=== PATIENT | male | born 1960 | race Caucasian/White ===

== ENCOUNTER 2022-10-10 00:43 | Day surgery (SDC) | payer BC, SELFPAY ==
[2022-09-28 12:16] VITALS: BMI 25.9
--- NOTE | 2022-10-10 06:58 | WPDANESEPPF ---
Anes - Initial Pre Proc Eval Procedure: Operation Date: 10/10/22 08:00 Proposed Procedures p Screening Colonoscopy - Jonnie Munoz MD Date/Time: 10/10/22 06:58 Surgeon: Jonnie Munoz MD Pre Op Diagnosis: neoplasm screening Patient Data Age: 62 Gender: M Height: 1.78 m Weight: 82 kg Allergies Allergy/AdvReac Type Severity Reaction Status Date / Time No Known Allergies Allergy Mild Verified 10/10/22 07:05 Home Medications Medication Instructions Recorded Confirmed Type sodium,potassium,mag sulfates 17.5 See Rx Instructions PO .COMPLEX 09/06/22 10/10/22 Rx gram-3.13 gram-1.6 gram oral soln #354 mL (Suprep Bowel Prep Kit) Gluco-Gel 4 tab-cap PO DAILY 09/28/22 10/10/22 History Liver Protect 1 tab-cap PO DAILY 09/28/22 10/10/22 History Multi-Vitamin 2 tab-cap PO DAILY 09/28/22 10/10/22 History Probiotic 2 tab-cap PO DAILY 09/28/22 10/10/22 History Vitamin C 7,000 mg PO DAILY 09/28/22 10/10/22 History acetylcysteine 600 mg capsule (NAC) 600 mg PO DAILY 09/28/22 10/10/22 History cholecalciferol (vitamin D3) 125 250 mcg PO DAILY 09/28/22 10/10/22 History mcg (5,000 unit) tablet (Vitamin D3) garlic 1,800 mg PO DAILY 09/28/22 10/10/22 History green tea extract 375 mg capsule 750 mg PO DAILY 09/28/22 10/10/22 History lecithin 1,200 mg capsule 1,200 mg PO DAILY 09/28/22 10/10/22 History magnesium 500 mg tablet 500 mg PO DAILY 09/28/22 10/10/22 History magnesium glycinate 175 mg PO HS 09/28/22 10/10/22 History omega-3 fatty acids 2,000 mg PO DAILY 09/28/22 10/10/22 History passion flower 1,400 mg PO HS 09/28/22 10/10/22 History quercetin 500 mg capsule 500 mg PO DAILY 09/28/22 10/10/22 History selenium 200 mcg capsule 300 mcg PO DAILY 09/28/22 10/10/22 History turmeric 1,000 mg PO DAILY 09/28/22 10/10/22 History zinc 50 mg capsule 50 mg PO DAILY 09/28/22 10/10/22 History Patient hx anesthesia problems: none Family hx anesthesia problems: none Results Review: All pre-operative results and documents have been reviewed as part of the pre-operative evaluation. [facility] Family History Family History (Updated 08/30/17 @ 07:09 by DOCTOR UNKNOWN) Father Malignant neoplasm of prostate Family history of throat cancer Grandparent Malignant neoplasm of prostate Mother Family history of malignant neoplasm of brain Social History Social History Smoking status: Never smoker Smokeless tobacco user: chewing tobacco Alcohol intake: former Substance use type: does not use Living arrangements: with family Spiritual care concerns: No Anes - Eval Final PreProcedure Day of Procedure 10/10/22 06:58 Patient weight: overweight Heart: regular rate and rhythm Lungs: clear to auscultation Airway: Mallampati scale class II Neurological: alert and oriented Last oral intake: >/= 8 hours ASA classification: I Emergent: no Anesthetic plan: proceed Anesthesia type and monitoring: general GIVS and standard monitoring Results Review: All pre-operative results and documents have been reviewed as part of the pre-operative evaluation. Informed Consent: The patient's anesthetic plan and its attendant risks and benefits were discussed with the patient/family/POA. Questions were solicited and answers provided to the satisfaction of the patient/family/POA.
[2022-10-10 07:07] VITALS: BP 112/77; PULSE 69; RESP 16; TEMP 36.2; O2SAT 100
[2022-10-10] MEDS: LACTATED RINGERS 1,000 ML 150 ML IV CONT (07:14)
--- NOTE | 2022-10-10 07:59 | PM.HPGS ---
History of Present Illness History of Present Illness Consent: Risks, benefits, and alternatives have been discussed and questions answered. Patient agrees to proceed with procedure. Chief complaint: neoplasm screening Narrative: Tommy Woo is a 62 year old male Presents for screening colonoscopy. Patient's current weight appetite and bowel movements are normal. Patient denies abdominal pain. He has had no bleeding. Family history is noncontributory. Patient presents today for neoplasia screening colonoscopy. Previous colonoscopy 2012 revealed a benign hyperplastic colon polyp. Not felt to have a cancer risk. Review of Systems Review of Systems: Review of systems noncontributory. [facility] Family History Family History (Updated 08/30/17 @ 07:09 by DOCTOR UNKNOWN) Father Malignant neoplasm of prostate Family history of throat cancer Grandparent Malignant neoplasm of prostate Mother Family history of malignant neoplasm of brain Social History Social History Smoking status: Never smoker Smokeless tobacco user: chewing tobacco Alcohol intake: former Substance use type: does not use Living arrangements: with family Spiritual care concerns: No Meds Home Medications and Allergies Home Medications Medication Instructions Recorded Confirmed Type sodium,potassium,mag sulfates 17.5 See Rx Instructions PO .COMPLEX 09/06/22 10/10/22 Rx gram-3.13 gram-1.6 gram oral soln #354 mL (Suprep Bowel Prep Kit) Gluco-Gel 4 tab-cap PO DAILY 09/28/22 10/10/22 History Liver Protect 1 tab-cap PO DAILY 09/28/22 10/10/22 History Multi-Vitamin 2 tab-cap PO DAILY 09/28/22 10/10/22 History Probiotic 2 tab-cap PO DAILY 09/28/22 10/10/22 History Vitamin C 7,000 mg PO DAILY 09/28/22 10/10/22 History acetylcysteine 600 mg capsule (NAC) 600 mg PO DAILY 09/28/22 10/10/22 History cholecalciferol (vitamin D3) 125 250 mcg PO DAILY 09/28/22 10/10/22 History mcg (5,000 unit) tablet (Vitamin D3) garlic 1,800 mg PO DAILY 09/28/22 10/10/22 History green tea extract 375 mg capsule 750 mg PO DAILY 09/28/22 10/10/22 History lecithin 1,200 mg capsule 1,200 mg PO DAILY 09/28/22 10/10/22 History magnesium 500 mg tablet 500 mg PO DAILY 09/28/22 10/10/22 History magnesium glycinate 175 mg PO HS 09/28/22 10/10/22 History omega-3 fatty acids 2,000 mg PO DAILY 09/28/22 10/10/22 History passion flower 1,400 mg PO HS 09/28/22 10/10/22 History quercetin 500 mg capsule 500 mg PO DAILY 09/28/22 10/10/22 History selenium 200 mcg capsule 300 mcg PO DAILY 09/28/22 10/10/22 History turmeric 1,000 mg PO DAILY 09/28/22 10/10/22 History zinc 50 mg capsule 50 mg PO DAILY 09/28/22 10/10/22 History Allergies Allergy/AdvReac Type Severity Reaction Status Date / Time No Known Allergies Allergy Mild Verified 10/10/22 07:05 Vital Signs Vital Signs - 24 hr 10/10/22 07:07 Temperature 97.2 F L Pulse Rate 69 Respiratory Rate 16 Blood Pressure 112/77 Pulse Oximetry 100 Oxygen Delivery Room Air Exam Narrative: Physical exam reveals patient to be alert. Vital signs stable. HEENT exam is unremarkable. Patient is anicteric. Lungs are clear to auscultation and percussion. Heart is without murmur or extra sounds. Abdomen bowel sounds are present soft nontender with no organomegaly. Digital external rectal exam is normal. Assessment and Plan Assessment and plan (1) Encounter for screening colonoscopy: Code(s): Z12.11 - Encounter for screening for malignant neoplasm of colon Status: Acute Assessment and Plan: Patient presents today for screening colonoscopy. He appears to be at average risk for colon polyps. Further recommendations may be given after endoscopy.
[2022-10-10] MEDS: SIMETHICONE ORAL SUSPENSION 20 MG/0.3 ML 30 ML BOTTLE 0.6 ML IRRIGATION (08:25)
[2022-10-10 08:33] VITALS: BP 96/60; PULSE 57; RESP 16; O2SAT 100
[2022-10-10 08:43] VITALS: BP 104/66; PULSE 52; RESP 16; O2SAT 100
[2022-10-10 08:53] VITALS: BP 106/70; PULSE 45; RESP 16; O2SAT 100
== END 2022-10-10 09:07 | disposition home or self-care (01) ==
PROVIDERS: PCP Student in an Organized Health Care Education/Training Program; Visit Provider Internal Medicine Gastroenterology
PROC: 0DJD8ZZ Inspection of Lower Intestinal Tract, Via Natural or Artificial Opening Endoscopic (ICD-10-PCS; CPT 45378; principal; 2022-10-10 08:00)
DX: Z12.11 Encounter for screening for malignant neoplasm of colon (principal); K63.89 Other specified diseases of intestine; K64.8 Other hemorrhoids; F17.220 Nicotine dependence, chewing tobacco, uncomplicated
CPT/HCPCS: 45378; J2704; J7120

== ENCOUNTER 2025-05-04 16:41 | Emergency (ER) | payer BC, SELFPAY ==
--- NOTE | ~2025-05-04 | US_ITS ---
US scrotum doppler INDICATION: Right testicular swelling TECHNIQUE: Testicular sonogram utilizing grayscale and color Doppler FINDINGS: The testes are normal in size and appearance. No focal lesions are seen. The right testes measures 4.6 x 2.5 x 3.8 cm centimeters, and the left testis measures 4.4 x 2 x 2.7 cm cm. There is n ormal vascular flow to both testes. There is a large right extratesticular cyst, likely epididymal, measuring 5.8 x 2.9 cm. Small right h ydrocele. No evidence for varicocele. IMPRESSION: 1. Large right extratesticular cyst measuring up to 5.8 cm, likely epididymal. Reviewed, dictated and finalized at location A.
--- NOTE | ~2025-05-04 | CT_ITS ---
EXAMINATION: CT abdomen pelvis w con DATE: 05/04/2025 20:09 INDICATION: Groin pain and swelling TECHNIQUE: Computed tomography (CT) of the head was performed without intravenous contrast. The dose- length product was 349.09 mGy-cm. Automated exposure control and iterative reconstruction technique w ere employed. COMPARISON: None FINDINGS: Lung bases unremarkable. Heart size normal. No significant pleural or pericardial effusion. There are liver cysts. The spleen, pancreas, adrenal glands and kidneys are unremarkable. No signifi cant vascular abnormality. No abnormal pelvic masses or fluid collections. Nonobstructive bowel patte rn. There is small right inguinal hernia containing fat infiltration and stranding. There is levoscol iosis of the lumbar spine. Mild lumbar spondylosis. There is mild osteoarthritis of the hips. There i s a right hydrocele. IMPRESSION: 1. Right inguinal hernia contains fat with presence of fatty infiltration and stranding indicating se condary changes within the fat. Differential diagnosis includes incarcerated hernia with strangulated fat, epiploic appendigits/omental infarction in hernia, and fat necrosis. Reviewed, dictated and finalized at location A. IMPRESSION: 1. Right inguinal hernia contains fat with presence of fatty infiltration and s tranding indicating secondary changes within the fat. Differential diagnosis in cludes incarcerated hernia with strangulated fat, epiploic appendigits/omental infarction in hernia, and fat necrosis.
--- OUTSIDE RECORDS SUMMARY | 2025-05-04 16:44 | XMS_ITS | Clinical Summary ---
Author Organization [facility] Address [facility] [place] [address] Care Team Providers Care Aerophysics Engineer Name Role Phone Jaime Borja DO Primary Care Provider + Allergies No known active allergies Medications Multiple Vitamins-[place] als (MULTIVITAMIN ADULT) Tab Active ketoconazole (NIZORAL) 2 % cream APPLY TO THE AFFECTED AREA TWICE DAILY NEEDED IN GROIN. MIX WITH HYDROCORTISONE CREAM 4 Active hydrocortisone 2.5 % cream APPLY TOPICALLY TO RASH IN GROIN TWICE DAILY NEEDED. MIX WITH KETOCONAZOLE. USE SPARINGLY AND LIMIT TO 2 WEEKS PER MONTH 4 Active Active Problems Problem Noted Date Diagnosed Date Excessive drinking of alcohol 07/13/2020 Chewing tobacco nicotine dependence without comp lication 07/13/2020 Encounters Date Type Department Care Team Description 05/04/2025 Telephone [facility] Family & Internal Medicine [address] [phone] Jaime Borja DO Referral from Last 3 Months Family History Medical History Relation Comments Cancer Father Tonsil & prostat e cancer, also my dads father and brother prostate cancer Prostate Cancer Father neck cancer Father Cancer Mother Brain cancer Prostate Cancer Paternal Grandfather Prostate Cancer Paternal Uncle Relation Status Comments Father Alive Mother Paternal Grandfather Paternal Uncle Alive Social History Tobacco Use Types Packs/Day Years Used Date Smoking Tobacco: Never Smokeless Tobacco: Current Chew Tobacco Cessation:Ready to Q uit: No; Counseling Given: Yes Comments:Skoal only daily use Alcohol Use Standard Drinks/Week Comments Yes 20 (1 standard drink = 0.6 oz pure alcohol) Havebeen able to reduce alchohol intake AUDIT-C Answer Date Recorded Q1: How often do you have a drink containing alcohol? 4 or more times a week 07/13/2020 Q2: How many drinks containi ng alcohol do you have on a typical day when you are drinking? 7 to 9 0 Q3: How often do you have si x or more drinks on one occasion? 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[employer] Not on file Not on file Not on file Last Filed Vital Signs Vital Sign Reading Time Taken Comments Blood Pressure 124/84 11/12/2024 8:52 AM INSTALLATION SUPERINTENDENT Pulse 79 11/12/2024 8:52 AM INSTALLATION SUPERINTENDENT Temperature 36.8 C (98.3 F) 11/12/2024 8:52 AM INSTALLATION SUPERINTENDENT Respiratory Rate 16 11/12/2024 8:52 AM INSTALLATION SUPERINTENDENT Oxygen Saturation 98% 11/12/2024 8:52 AM INSTALLATION SUPERINTENDENT Inhaled Oxygen Concentration - - Weight 82.6 kg (182 lb) 11/12/2024 8:52 AM INSTALLATION SUPERINTENDENT Height 177.8 cm (5' 10) 11/12/2024 8:52 AM INSTALLATION SUPERINTENDENT Body Mass Index 26.11 11/12/2024 8:52 AM INSTALLATION SUPERINTENDENT Plan of Treatment Upcoming Encounters Date Type Department Care Team (Late st Contact Info) Description 11/16/2025 8:40 AM INSTALLATION SUPERINTENDENT Office Visit [facility] Family & Internal Medicine [id number] [place] [address] Jaime Borja, [address] [place] [address] [id number] Health Maintenance Due Date Last Done Comments Pneumococcal Vaccine: 50+ Years (1 of - PCV) 2011 Annual Physical 11/12/2025 11/12/2024, 09/17, 07/26/2022, Additional history exists COVID-19 Vaccine (1 - season) 2025 Postponed from 05/18/2024 (Patient Refused) DTaP, Tdap and Td Vaccines (1 - Tdap) 11/12/2025 Postponed from 1980 (Patient Refused) Zoster Vaccines (1 of 2) 11/12/2025 Pos tponed from 2011 (Patient Refused) Colorectal Cancer Screening Colonoscopy (10 Years) 10/10/2032 10/10/2022 RSV Immunization or 60+ Years (1 - 1-dose 75+ series) 2036 Hepatitis C Completed 07/26/2022 PHQ-2 (Physician [place]) Completed 11/12/2024 Meningococcal B Vaccine Aged Out No l onger eligible based on patient's age to complete this topic Meningococcal Vaccine Aged Out No job tyra eligible based on patient's age to complete this topic RSV Immunizations Under 20 Months Aged Out No longer eligible based on patient's age to complete this topic Procedures Procedure Name Priority Date/Time Associated Diagnosis Comments COLONOSCOPY GENERIC (SCAN ORDER) 10/10/2022 HEPATITIS C ANTIBODY Routine 07/26/2022 8:22 AM INSTALLATION SUPERINTENDENT Encounter for preventative adult health care examination Need for hepatitis C screening test from Last 3 Months or Most Recently Relevant to Health Maintenance Results * COLONOSCOPY GENERIC (10/10/2022) 10/10/2022 [facility] Scanned SCANNING Final Resu lt * HEPATITIS C ANTIBODY (07/26/2022 8:22 AM INSTALLATION SUPERINTENDENT) HEPATITIS C AB NON-REACTI VE NON-REACT JOESPH 07/26/2022 6:45 PM INSTALLATION SUPERINTENDENT [facility] Comment: ANTIBODIES TO HCV NOT DETECTED. DOES NOT EXCLUDE THE POSSIBILITY OF EXPOSURE TO HCV. 07/26/2022 8:22 AM INSTALLATION SUPERINTENDENT us Jaime Borja DO LABORATORY Final Re sult [facility] [address] [place] [address], [id number] from Last 3 Months or Most Recently Relevant to Health Maintenance Insurance [facility] Care Teams Aerophysics Engineer Relationship Specialty Start Date End Date Jaime Borja DO [address] [place] [id number] PCP - General FAMILY PRACTICE 07/13/20
--- OUTSIDE RECORDS SUMMARY | 2025-05-04 16:44 | XMS_ITS | Encounter Summary ---
Author Organization [facility] Address [facility] [place] [address] Care Team Providers Care First Beater Name Role Phone Sofia Morales DO Primary Care Provider + Reason for Referral * Consultation/Treatment (Urgent) - New Request Specialty Diagnoses / Procedures Referred By Rica barnes Referred To Contact GENERAL SURGERY Diagnoses Inguinal hernia Procedures OFFICE/OUTPATIENT NEW LOW MDM 30-44 MINUTES OFFICE/OUTPT VISIT,NEW,LEVL IV OFFICE/OUTPT VISIT,NEW,LEVL V OFFICE/OUTPT VISIT,EST,LEVL III OFFICE/OUTPT VISIT,EST,LEVL IV OFFICE/OUTPT VISIT,EST,LEVL V Sofia Morales DO [address] [place] [address] Phone: tel: fax: Rose Chaney MD [address] [place] [id number] Phone: tel: fax: Referral ID Status Reason Start Date Expiration Date V isits Requested Visits Authorized [id number] New Request 05/04/2025 05/04/2026 1 1 Scheduling Instructions Pt has appt scheduled 05/06/25. Reason for Visit * Reason Onset Date Comments Referral 05/04/2025 Encounter Details Date Type Department Care Team (Late st Contact Info) Description 05/04/2025 Telephone [facility] Family & Internal Medicine [facility] [address] [place] [address] Sofia Morales DO [address] [place] [address] Referral Social History Tobacco Use Types Packs/Day Years Used Date Smoking Tobacco: Never Smokeless Tobacco: Current Chew Comments:Skoal only daily us e Alcohol Use Standard Drinks/Week Comments Yes 20 [...] Sex Assigned at Male 11/12/2024 8:52 AM BILLET HEATER OPERATOR Legal Sex Male 3:35 PM CDT Gender Identity Male 11/12/2024 8:52 AM BILLET HEATER OPERATOR Sexual Orientation Not on file 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 Called pt to inform, he stated the appointment couldn't be held, and it is no longer available. He said Dr. Chaney is currently physician on staff at [facility]. At time of call, pt is on his way to ER to be seen/eval by Dr. Chaney. * Sofia Morales DO - 05/04/2025 12:45 PM CDT That's fine. * Carito Kapoor - 05/04/2025 12:01 PM CDT Patient called Dr. Chaney and they would be able to get him in 05/06/25 as he is flying out of town for about 2x weeks starting on Sunday. * Carito Kapoor - 05/04/2025 11:58 AM CDT The patient called for a referral to the following physician: Is this a new consult: yes - has never been seen by provider Dr's name: Dr. Rose Chaney Specialty: General Surgery Reason for referral (diagnosis): Inguinal Hernia Appointment: n/a Last office visit at this office: Last visit with SOFIA MORALES in FAMILY PRACTICE was on: 11/12/2024 in [facility] Future appointment scheduled: Future Appointments Date Time Provider Department Center 11/16/2025 8:40 AM Sofia Morales DO [facility] documented in this encounter Plan of Treatment Upcoming Encounters Date Type Department Care Team (Late st Contact Info) Description 11/16/2025 8:40 AM BILLET HEATER OPERATOR Office Visit [facility] Family & Internal Medicine - [id number] [place] [address] Sofia Morales DO [facility] [place] [address] Scheduled Referrals Name Type Priority Associated Diagnoses Orde r Schedule Ambulatory referral to General Surgery (OTHER) Referral Routine Inguinal hernia Ordered: 05/04/2025 documented as of this encounter Visit Diagnoses Diagnosis Inguinal hernia- Primary Inguinal hernia with gangrene, unilateral or unspecified, (not specified as recurrent) documented in this encounter Additional Health Concerns Assessment Noted Time PHQ-9 Depression Total Score: 2 07/13/20 20 10:27 AM CDT documented as of this encounter Care Teams First Beater Relationship Specialty Start Date End Date Sofia Morales DO [address] [place] [id number] PCP - General FAMILY PRACTICE 07/13/20 documented as of this encounter
--- OUTSIDE RECORDS SUMMARY | 2025-05-04 16:44 | XMS_ITS | Clinical Summary ---
Author Organization [facility] Address [address] [place] [address] Care Team Providers Care Metal Products Fabricator Assembler Name Role Phone LukemineshJaime munoz Primary Care Provide r Allergies No known active allergies Medications meloxicam (MOBIC) 15 mg tablet Take 1 tablet (15 mg total) by mouth daily 30 tablet 01/21/2024 Active Active Problems Problem Noted Date Diagnosed Date Trigger ring finger of left hand 07/31/2024 Left hand pain 07/02/2024 Social History Tobacco Use Types Packs/Day Years Used Date Smoking Tobacco: Never Smokeless Tobacco: Current Tobacco Cessation:Ready to Q uit: Not Asked; Counseling Given: Not Answered Sex and Gender Information Value Date Recorded Sex Assigned at Not on file Legal Sex Male 1:40 PM CDT Gender Identity Not on file Sexual Orientation Not on file Obstetrics History Last Filed Vital Signs Vital Sign Reading Time Taken Comments Blood Pressure - - Pulse - - Temperature - - Respiratory Rate - - Oxygen Saturation - - Inhaled Oxygen Concentration - - Weight 76.7 kg (169 lb) 01/21/2024 12:52 PM CDT Height 177.8 cm (5' 10) 01/21/2024 12:52 PM CDT Body Mass Index 24.25 01/21/2024 12:52 PM CDT Plan of Treatment Health Maintenance Due Date Last Done Comments Colon Cancer Screening-Colonoscopy 1961 Depression Screening 1961 Hepatitis C Screening 1961 Prostate Cancer Screening-PSA 1961 DTaP/Tdap/Td Vaccine (1 - Tdap) 1972 Hepatitis B Screening 1979 Regular Well Visit/Exam 18-64 1979 Zoster Vaccine (1 of 2) 2011 Influenza Vaccine (#1) 2025 Pneumococcal vaccine <65 Aged Out No longer eligible based on patient's age to complete this topic Insurance ensembli OOS ensembli OOS Care Teams Metal Products Fabricator Assembler Relationship Specialty Start Date End Date Jaime Borja DO [address] [place] [id number] PCP - General Family Medicine 01/14/24
[2025-05-04 16:45] VITALS: BP 155/95; PULSE 75; RESP 18; TEMP 37.1; O2SAT 100
--- NOTE | 2025-05-04 16:46 | ED.ABDPAIN ---
HPI - Abdominal Pain General Chief Complaint: Abdominal Pain <Silvina Llamas PA-C - Last Filed: 05/05/25 10:10> Stated Complaint: inguinal hernia <Silvina Llamas PA-C - Last Filed: 05/05/25 10:10> Time Seen by Provider: 05/04/25 16:46 <Silvina Llamas PA-C - Last Filed: 05/05/25 10:10> Focused HPI: This is a 64 year old male that presents to the ER for abdominal pain. Reports morning he blew his nose and felt sharp pain in the lower abdomen. Concerned he may have an inguinal hernia. Denies fevers, vomiting. GENERAL: Well-appearing, well-nourished, and in no acute distress. HEAD: Normocephalic, atraumatic. CHEST: Clear to auscultation. ?No respiratory distress. HEART: Regular rate and rhythm.? NEURO: ?Alert and oriented x3. Patient screened in triage and initial orders placed.? ?Additional care and disposition to be based upon?diagnostic testing and treatment. <Silvina Llamas PA-C - Last Filed: 05/05/25 10:10> History of Present Illness HPI narrative: I agree with the above HPI <Nicola Shahid MD - Last Filed: 05/05/25 00:57> Related Data Home Medications: Home Medications ?Medication ?Instructions ?Recorded ?Confirmed ?Last Taken ?Type Gluco-Gel 4 tab-cap PO DAILY 09/28/22 10/10/22 10/05/22 History Liver Protect 1 tab-cap PO DAILY 09/28/22 10/10/22 10/05/22 History Multi-Vitamin 2 tab-cap PO DAILY 09/28/22 10/10/22 10/05/22 History Probiotic 2 tab-cap PO DAILY 09/28/22 10/10/22 10/05/22 History Vitamin C 7,000 mg PO DAILY 09/28/22 10/10/22 10/05/22 History acetylcysteine 600 mg capsule (NAC) 600 mg PO DAILY 09/28/22 10/10/22 10/05/22 History cholecalciferol (vitamin D3) 125 250 mcg PO DAILY 09/28/22 10/10/22 10/05/22 History mcg (5,000 unit) tablet (Vitamin D3) garlic 1,800 mg PO DAILY 09/28/22 10/10/22 10/05/22 History green tea extract 375 mg capsule 750 mg PO DAILY 09/28/22 10/10/22 10/05/22 History lecithin 1,200 mg capsule 1,200 mg PO DAILY 09/28/22 10/10/22 10/05/22 History magnesium 500 mg tablet 500 mg PO DAILY 09/28/22 10/10/22 10/05/22 History magnesium glycinate 175 mg PO HS 09/28/22 10/10/22 10/05/22 History omega-3 fatty acids 2,000 mg PO DAILY 09/28/22 10/10/22 10/05/22 History passion flower 1,400 mg PO HS 09/28/22 10/10/22 10/05/22 History quercetin 500 mg capsule 500 mg PO DAILY 09/28/22 10/10/22 10/05/22 History selenium 200 mcg capsule 300 mcg PO DAILY 09/28/22 10/10/22 10/05/22 History turmeric 1,000 mg PO DAILY 09/28/22 10/10/22 10/05/22 History zinc 50 mg capsule 50 mg PO DAILY 09/28/22 10/10/22 10/05/22 History <Silvina Llamas PA-C - Last Filed: 05/05/25 10:10> Allergies/Adverse Reactions: Allergies Allergy/AdvReac Type Severity Reaction Status Date / Time No Known Allergies Allergy Mild Verified 05/04/25 16:50 <Silvina Llamas PA-C - Last Filed: 05/05/25 10:10> Review of Systems Review of Systems: All systems reviewed & are unremarkable except as noted in HPI and below <Nicola Shahid MD - Last Filed: 05/05/25 00:57> [facility] Family History Family History: Family History (Updated 08/30/17 @ 07:09 by DOCTOR UNKNOWN) Father Malignant neoplasm of prostate Family history of throat cancer Grandparent Malignant neoplasm of prostate Mother Family history of malignant neoplasm of brain <Silvina Llamas PA-C - Last Filed: 05/05/25 10:10> Social History Social History: Social History Smoking status: Never smoker Smokeless tobacco user: chewing tobacco Alcohol intake: former Substance use type: does not use Living arrangements: with family Spiritual care concerns: No <Silvina Llamas PA-C - Last Filed: 05/05/25 10:10> Exam Narrative: APPEARANCE: Well appearing, no pain, no distress, well-nourished. HEAD: normocephalic, atraumatic. EYES: PERRLA/EOMI, conjunctivae clear. NOSE: Normal no drainage EARS:TMS clear with good light reflex. THROAT: Pharynx clear, no exudate. NECK: Supple. No adenopathy, no masses. RESPIRATORY: Airway patent, respirations nonlabored. Clear to auscultation bilaterally, no rales, rhonchi, wheezing. CARDIOVASCULAR: Regular rate and rhythm without murmurs rubs or gallops. ABDOMINAL: Reducible right-sided inguinal hernia MUSCULOSKELETAL: Moves all extremities. Strength/ROM intact, No edema, No calf tenderness. NEURO: Alert. Cranial nerves II through XII intact. Grossly intact SKIN: Warm, dry. Normal Color <Nicola Shahid MD - Last Filed: 05/05/25 00:57> Course Vital Signs Vital signs: Vital Signs Temperature 98.7 F 05/04/25 16:45 Pulse Rate 75 05/04/25 16:45 Respiratory Rate 18 05/04/25 16:45 Blood Pressure 155/95 H 05/04/25 16:45 Pulse Oximetry 100 05/04/25 16:45 Oxygen Delivery Room Air 05/04/25 16:45 Temperature 98.7 F 05/04/25 16:45 Pulse Rate 75 05/04/25 16:45 Respiratory Rate 18 05/04/25 16:45 Blood Pressure 155/95 H 05/04/25 16:45 Pulse Oximetry 100 05/04/25 16:45 Oxygen Delivery Room Air 05/04/25 16:45 <Silvina Llamas PA-C - Last Filed: 05/05/25 10:10> Vital Signs Temperature 98.7 F 05/04/25 16:45 Pulse Rate 75 05/04/25 16:45 Respiratory Rate 18 05/04/25 16:45 Blood Pressure 155/95 H 05/04/25 16:45 Pulse Oximetry 100 05/04/25 16:45 Oxygen Delivery Room Air 05/04/25 16:45 Temperature 98.7 F 05/04/25 16:45 Pulse Rate 75 05/04/25 16:45 Respiratory Rate 18 05/04/25 16:45 Blood Pressure 155/95 H 05/04/25 16:45 Pulse Oximetry 100 05/04/25 16:45 Oxygen Delivery Room Air 05/04/25 16:45 <Nicloa Shahid MD - Last Filed: 05/05/25 00:57> MDM - Abdominal Pain MDM Narrative Medical decision making narrative: 64-year-old male presents emergency department for evaluation for testicular swelling and right groin pain. On exam patient has no incarcerated hernia. Patient is afebrile with no leukocytosis hemoglobin of 14.2. No acute abnormalities on his CMP with normal liver function. ct did does show a fatty inguinal hernia and a large epididymal cyst. Patient will be provided follow-up with Urology and with surgery. Patient was updated results of workup. Patient was comfortable with plan for discharge and close follow-up <Nicola Shahid MD - Last Filed: 05/05/25 00:57> Differential Diagnosis Differential diagnosis: Likely abdominal pain, acute appendicitis, calculus of kidney, constipation, diverticulitis, small bowel obstruction and other <Nicola Shahid MD - Last Filed: 05/05/25 00:57> Lab Data Attestation: I reviewed the patient's lab results. <Nicola Shahid MD - Last Filed: 05/05/25 00:57> Result diagrams: 05/04/25 18:52 05/04/25 18:52 <Silvina Llamas PA-C - Last Filed: 05/05/25 10:10> Labs: Lab Results 05/04/25 05/04/25 Range/Units 18:52 20:32 WBC 6.3 (4.5-10.0) K/mm3 RBC 4.48 L (4.6-6.20) M/mm3 Hgb 14.2 (14.0-18.0) g/dL Hct 41.4 L (42.0-52.0) % MCV 92.4 (80-100) fl MCH 31.7 (26-34) pg MCHC 34.3 (32-36) g/dl RDW 11.9 (11.5-14.5) % Plt Count 216 (150-375) k/mm3 MPV 9.3 (7.4-10.4) fl Immature Gran % (Auto) 0.2 (0-0.5) % Neut % (Auto) 51.0 (45.5-73.1) % Lymph % (Auto) 37.4 (18.3-44.2) % [place] % (Auto) 7.9 (2.6-8.5) % Eos % (Auto) 3.2 (0-4.4) % Baso % (Auto) 0.3 (0.2-1.2) % Lymph # (Auto) 2.37 (0.9-3.2) K/mm3 [place] # (Auto) 0.5 (0.1-0.6) K/mm3 Eos # (Auto) 0.2 (0-0.3) K/mm3 Baso # (Auto) 0.0 (0.0-0.1) K/mm3 Abs Immat Gran (auto) 0.01 (0.00-0.031) K/mm3 Absolute Neuts (auto) 3.2 (1.3-6.7) K/mm3 Absolute Nucleated RBC 0.000 (0.0-0.012) K/mm3 Nucleated RBC % 0.0 (0.0-0.2) % Sodium 138 (137-145) mmol/L Potassium 4.1 (3.4-5.0) mmol/L Chloride 106 (98-107) mmol/L Carbon Dioxide 23 (22-30) mmol/L Anion Gap 9 (4-12) mmol/L BUN 20 (9-20) mg/dL Creatinine 0.91 (0.7-1.3) mg/dL Estim Creat Clear Calc 75 ml/min Estimated GFR > 60 (59 - ) Glucose 108 (65-110) mg/dL Calcium 10.0 (8.4-10.2) mg/dL Total Bilirubin 1.1 (0.2-1.3) mg/dL AST 34 (17-59) U/L ALT 23 (6-50) U/L Alkaline Phosphatase 49 (38-126) U/L Total Protein 7.6 (6.3-8.2) g/dL Albumin 4.7 (3.5-5.1) g/dL Lipase 226 (23-300) U/L Urine Color Dark yellow (Yellow) Urine Appearance Clear (Clear) Urine pH 5.0 (5.0-9.0) Ur Specific [place] 1.019 (1.001-1.035) Urine Protein Negative (Negative) mg/dL Urine Glucose (UA) Negative (Negative) mg/dL Urine Ketones Negative (Negative) mg/dL Ur Blood (Man) Negative (Negative) Urine Nitrate Negative (Negative) Urine Bilirubin Negative (Negative) Urine Urobilinogen 0.2 (<2.0) mg/dL Leukocyte Esterase Rfl Negative (Negative) CORNELIO/UL <Silvina Llamas PA-C - Last Filed: 05/05/25 10:10> Lab Results 05/04/25 05/04/25 Range/Units 18:52 20:32 WBC 6.3 (4.5-10.0) K/mm3 RBC 4.48 L (4.6-6.20) M/mm3 Hgb 14.2 (14.0-18.0) g/dL Hct 41.4 L (42.0-52.0) % MCV 92.4 (80-100) fl MCH 31.7 (26-34) pg MCHC 34.3 (32-36) g/dl RDW 11.9 (11.5-14.5) % Plt Count 216 (150-375) k/mm3 MPV 9.3 (7.4-10.4) fl Immature Gran % (Auto) 0.2 (0-0.5) % Neut % (Auto) 51.0 (45.5-73.1) % Lymph % (Auto) 37.4 (18.3-44.2) % [place] % (Auto) 7.9 (2.6-8.5) % Eos % (Auto) 3.2 (0-4.4) % Baso % (Auto) 0.3 (0.2-1.2) % Lymph # (Auto) 2.37 (0.9-3.2) K/mm3 [place] # (Auto) 0.5 (0.1-0.6) K/mm3 Eos # (Auto) 0.2 (0-0.3) K/mm3 Baso # (Auto) 0.0 (0.0-0.1) K/mm3 Abs Immat Gran (auto) 0.01 (0.00-0.031) K/mm3 Absolute Neuts (auto) 3.2 (1.3-6.7) K/mm3 Absolute Nucleated RBC 0.000 (0.0-0.012) K/mm3 Nucleated RBC % 0.0 (0.0-0.2) % Sodium 138 (137-145) mmol/L Potassium 4.1 (3.4-5.0) mmol/L Chloride 106 (98-107) mmol/L Carbon Dioxide 23 (22-30) mmol/L Anion Gap 9 (4-12) mmol/L BUN 20 (9-20) mg/dL Creatinine 0.91 (0.7-1.3) mg/dL Estim Creat Clear Calc 75 ml/min Estimated GFR > 60 (59 - ) Glucose 108 (65-110) mg/dL Calcium 10.0 (8.4-10.2) mg/dL Total Bilirubin 1.1 (0.2-1.3) mg/dL AST 34 (17-59) U/L ALT 23 (6-50) U/L Alkaline Phosphatase 49 (38-126) U/L Total Protein 7.6 (6.3-8.2) g/dL Albumin 4.7 (3.5-5.1) g/dL Lipase 226 (23-300) U/L Urine Color Dark yellow (Yellow) Urine Appearance Clear (Clear) Urine pH 5.0 (5.0-9.0) Ur Specific [place] 1.019 (1.001-1.035) Urine Protein Negative (Negative) mg/dL Urine Glucose (UA) Negative (Negative) mg/dL Urine Ketones Negative (Negative) mg/dL Ur Blood (Man) Negative (Negative) Urine Nitrate Negative (Negative) Urine Bilirubin Negative (Negative) Urine Urobilinogen 0.2 (<2.0) mg/dL Leukocyte Esterase Rfl Negative (Negative) CORNELIO/UL <Nicola Shahid MD - Last Filed: 05/05/25 00:57> Imaging Data Radiologist's impression: ITS Impressions Scrotum Ultrasound 05/04/25 20:07 IMPRESSION: 1. Large right extratesticular cyst measuring up to 5.8 cm, likely epididymal. Abdomen/Pelvis CT 05/04/25 20:15 IMPRESSION: 1. Right inguinal hernia contains fat with presence of fatty infiltration and stranding indicating secondary changes within the fat. Differential diagnosis includes incarcerated hernia with strangulated fat, epiploic appendigits/omental infarction in hernia, and fat necrosis. <Silvina Llamas PA-C - Last Filed: 05/05/25 10:10> ITS Impressions Scrotum Ultrasound 05/04/25 20:07 IMPRESSION: 1. Large right extratesticular cyst measuring up to 5.8 cm, likely epididymal. Abdomen/Pelvis CT 05/04/25 20:15 IMPRESSION: 1. Right inguinal hernia contains fat with presence of fatty infiltration and stranding indicating secondary changes within the fat. Differential diagnosis includes incarcerated hernia with strangulated fat, epiploic appendigits/omental infarction in hernia, and fat necrosis. <Nicola Shahid MD - Last Filed: 05/05/25 00:57> Critical Care Time Critical Care Time Critical Care Time: No <Silvina Llamas PA-C - Last Filed: 05/05/25 10:10> Discharge Plan Discharge Clinical Impression: Cyst of epididymis Inguinal hernia Qualifiers: Obstruction and gangrene presence: without obstruction or gangrene Laterality: unilateral Recurrence: not specified as recurrent Qualified Code(s): K40.90 - Unilateral inguinal hernia, without obstruction or gangrene, not specified as recurrent <Silvina Llamas PA-C - Last Filed: 05/05/25 10:10> Patient Disposition: Home <Silvina Llamas PA-C - Last Filed: 05/05/25 10:10> Condition: Stable <Silvina Llamas PA-C - Last Filed: 05/05/25 10:10> Instructions: Antibiotic Form, Inguinal Hernia (ED), Scrotal Pain (ED) <Silvina Llamas PA-C - Last Filed: 05/05/25 10:10> Additional Instructions: Avoid heavy lifting. Wear a inguinal hernia belt as needed to apply pressure to groin. Have close follow-up with surgery regarding the inguinal hernia and have close follow-up with Urology for the epididymal cyst. <Silvina Llamas PA-C - Last Filed: 05/05/25 10:10> Patient Language: Japanese <Silvina Llamas PA-C - Last Filed: 05/05/25 10:10> Prescriptions: No Action magnesium 500 mg Tablet 500 mg PO DAILY lecithin 1,200 mg Capsule 1,200 mg PO DAILY Rx Instructions: give with meal/snack garlic Tablet 1,800 mg PO DAILY [place] 3 Capsule 2,000 mg PO DAILY zinc 50 mg Capsule 50 mg PO DAILY green tea extract 375 mg Capsule 750 mg PO DAILY acetylcysteine [NAC] 600 mg Capsule 600 mg PO DAILY cholecalciferol (vitamin D3) [Vitamin D3] 125 mcg (5,000 unit) Tablet 250 mcg PO DAILY selenium 200 mcg Capsule 300 mcg PO DAILY quercetin 500 mg Capsule 500 mg PO DAILY Gluco-Gel 4 tab-cap PO DAILY Liver Protect 1 tab-cap PO DAILY Multi-Vitamin 2 tab-cap PO DAILY Probiotic 2 tab-cap PO DAILY Vitamin C 7,000 mg PO DAILY magnesium glycinate 175 mg PO HS passion flower 1,400 mg PO HS turmeric 1,000 mg PO DAILY sodium,potassium,mag sulfates [Suprep Bowel Prep Kit] 17.5-3.13-1.6 gram recon soln See Rx Instructions PO .COMPLEX Qty: 354 0RF Rx Instructions: TAKE DIRECTED <Silvina Llamas PA-C - Last Filed: 05/05/25 10:10> Follow-up/Referrals: Rose Chaney MD [Physician, General Surgery] Brodie Reyna MD [Physician, Urology] Huong,DO Jaime [Primary Care Provider] <Silvina Llamas PA-C - Last Filed: 05/05/25 10:10>
[2025-05-04 19:04] LABS: Hematocrit 41.4 % (42.0-52.0); Hemoglobin 14.2 g/dL (14.0-18.0); Immature Granulocyte Percent A 0.2 % (0-0.5); Lymphocytes Absolute Auto 2.37 K/mm3 (0.9-3.2); Mean Corpuscular HGB Conc 34.3 g/dl (32-36); Mean Corpuscular Hemoglobin 31.7 pg (26-34); Mean Corpuscular Volume 92.4 fl (80-100); Nucleated Red Blood Cells Absolute Auto 0.000 K/mm3 (0.0-0.012); Nucleated Red Blood Cells Perc 0.0 % (0.0-0.2); Platelet Count Result 216 k/mm3 (150-375); Red Blood Count 4.48 M/mm3 (4.6-6.20); White Blood Count 6.3 K/mm3 (4.5-10.0)
[2025-05-04 19:12] LABS: Alanine Aminotransferase 23 U/L (6-50); Albumin Level 4.7 g/dL (3.5-5.1); Alkaline Phosphatase 49 U/L (38-126); Anion Gap 9 mmol/L (4-12); Aspartate Amino Transferase 34 U/L (17-59); Bilirubin,Total 1.1 mg/dL (0.2-1.3); Blood Urea Nitrogen 20 mg/dL (9-20); Calcium 10.0 mg/dL (8.4-10.2); Carbon Dioxide 23 mmol/L (22-30); Chloride 106 mmol/L (98-107); Estimated CRCL calculation 75 ml/min; Estimated Glomerular Filt Rate > 60; Glucose 108 mg/dL (65-110); Lipase 226 U/L (23-300); Potassium 4.1 mmol/L (3.4-5.0); Sodium 138 mmol/L (137-145); Total Protein 7.6 g/dL (6.3-8.2)
--- OUTSIDE RECORDS SUMMARY | 2025-05-04 19:20 | XMS_ITS | Clinical Summary ---
Author Organization [facility] Address [address] [place] [address] Care Team Providers Care Security Incident Handler Name Role Phone LukemineshJaime munoz Primary Care [...] patient's age to complete this topic Insurance [employer] OOS [employer] Care Teams Security Incident Handler Relationship Specialty Start Date End Date Jaime Borja DO [address] [place] [id number] PCP - General Family Medicine 01/14/24
--- OUTSIDE RECORDS SUMMARY | 2025-05-04 19:20 | XMS_ITS | Encounter Summary ---
Author Organization [facility] Address [facility] [place] [address] Care Team Providers Care Wind Commissioning Technician Name Role Phone Sofia Morales DO Primary Care Provider + Reason for Referral * Consultation/Treatment (Urgent) - New Request Specialty Diagnoses / Procedures Referred By Rica barnes Referred To Contact GENERAL SURGERY Diagnoses Inguinal hernia Procedures OFFICE/OUTPATIENT NEW LOW MDM 30-44 MINUTES OFFICE/OUTPT VISIT,NEW,LEVL IV OFFICE/OUTPT VISIT,NEW,LEVL V OFFICE/OUTPT VISIT,EST,LEVL III OFFICE/OUTPT VISIT,EST,LEVL IV OFFICE/OUTPT VISIT,EST,LEVL V Sofia Morales DO [address] [place] [address] Phone: tel: fax: Rose Chaney MD [address] [place] [phone] Phone: tel: fax: Referral ID Status Reason Start Date Expiration Date V isits Requested Visits Authorized [id number] New Request 05/04/2025 05/04/2026 1 1 Scheduling Instructions Pt has appt scheduled 05/06/25. Reason for Visit * Reason Onset Date Comments Referral 05/04/2025 Encounter Details Date Type Department Care Team (Late st Contact Info) Description 05/04/2025 Telephone [facility] Medical Group Family & Internal Medicine [facility] [address] [place] [address] Sofia Morales DO [address] [place] [address] Referral Social History Tobacco Use Types Packs/Day [...] Sex Assigned at Male 11/12/2024 8:52 AM DIRECTOR OF CLINICAL SERVICES Legal Sex Male 3:35 PM CDT Gender Identity Male 11/12/2024 8:52 AM DIRECTOR OF CLINICAL SERVICES Sexual Orientation Not on file 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 At time of call, pt is on [...] in FAMILY PRACTICE was on: 11/12/2024 in [facility] Future appointment scheduled: Future Appointments Date Time Provider Department Center 11/16/2025 8:40 AM Sofia Morales DO [facility] documented in this encounter Plan of Treatment Upcoming Encounters Date Type Department Care Team (Late st Contact Info) Description 11/16/2025 8:40 AM DIRECTOR OF CLINICAL SERVICES Office Visit [facility] Medical Group Family & Internal Medicine - [place] [id number] [place] [address] Sofia Morales DO [facility] [place] [address] Scheduled Referrals Name Type Priority Associated Diagnoses [...] documented as of this encounter Care Teams Wind Commissioning Technician Relationship Specialty Start Date End Date Sofia Morales DO [address] [place] [id number] PCP - General FAMILY PRACTICE 07/13/20 documented as of this encounter
--- OUTSIDE RECORDS SUMMARY | 2025-05-04 19:20 | XMS_ITS | Clinical Summary ---
Author Organization [facility] Address [facility] [place] [address] Care Team Providers Care Assistant Project Engineer Name Role Phone Jaime Borja DO Primary Care Provider + Allergies No known active allergies Medications Multiple Vitamins-Goodell als (MULTIVITAMIN ADULT) Tab Active ketoconazole (NIZORAL) [...] Type Department Care Team Description 05/04/2025 Telephone [facility] Medical Group Family & Internal Medicine [address] [phone] Jaime Borja DO Referral from [...] Sex Assigned at Male 11/12/2024 8:52 AM YOUTH CARE WORKER Legal Sex Male 3:35 PM CDT Gender Identity Male 11/12/2024 8:52 AM YOUTH CARE WORKER Sexual Orientation Not on file 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 Not on file Not on file Last Filed Vital Signs Vital Sign Reading Time Taken Comments Blood Pressure 124/84 11/12/2024 8:52 AM YOUTH CARE WORKER Pulse 79 11/12/2024 8:52 AM YOUTH CARE WORKER Temperature 36.8 C (98.3 F) 11/12/2024 8:52 AM YOUTH CARE WORKER Respiratory Rate 16 11/12/2024 8:52 AM YOUTH CARE WORKER Oxygen Saturation 98% 11/12/2024 8:52 AM YOUTH CARE WORKER Inhaled Oxygen Concentration - - Weight 82.6 kg (182 lb) 11/12/2024 8:52 AM YOUTH CARE WORKER Height 177.8 cm (5' 10) 11/12/2024 8:52 AM YOUTH CARE WORKER Body Mass Index 26.11 11/12/2024 8:52 AM YOUTH CARE WORKER Plan of Treatment Upcoming Encounters Date Type Department Care Team (Late st Contact Info) Description 11/16/2025 8:40 AM YOUTH CARE WORKER Office Visit [facility] Medical Group Family & Internal Medicine [place] [address] [place] [address] Jaime Borja, [address] [place] [phone] Health Maintenance Due Date Last Done Comments [...] 2036 Hepatitis C Completed 07/26/2022 PHQ-2 (Physician [place]) Completed 11/12/2024 Meningococcal B Vaccine Aged Out [...] HEPATITIS C ANTIBODY Routine 07/26/2022 8:22 AM YOUTH CARE WORKER Encounter for preventative adult health care examination Need for hepatitis C screening test from Last 3 Months or Most Recently Relevant to Health Maintenance Results * COLONOSCOPY GENERIC (10/10/2022) 10/10/2022 [facility] Scanned SCANNING Final Resu lt * HEPATITIS C ANTIBODY (07/26/2022 8:22 AM YOUTH CARE WORKER) HEPATITIS C AB NON-REACTI VE NON-REACT JOESPH 07/26/2022 6:45 PM YOUTH CARE WORKER [facility] Comment: ANTIBODIES TO HCV NOT DETECTED. DOES NOT EXCLUDE THE POSSIBILITY OF EXPOSURE TO HCV. 07/26/2022 8:22 AM YOUTH CARE WORKER us Jaime Borja DO LABORATORY Final Re sult [facility] [address] [place] [address], [phone] from Last 3 Months or Most Recently Relevant to Health Maintenance Insurance [facility] Care Teams Assistant Project Engineer Relationship Specialty Start Date End Date Jaime Borja DO [address] [place] [id number] PCP - General FAMILY PRACTICE 07/13/20
[2025-05-04 20:39] LABS: Add Urine Microscopic? YES; Appearance Urine Clear (Clear); Glucose Urine UA Negative (Negative); Leukocyte Esterase Ur Negative LEU/UL (Negative); Nitrate Urine Negative (Negative); Specific Grav Ur 1.019 (1.001-1.035)
== END 2025-05-04 20:57 | disposition home or self-care (01) ==
PROVIDERS: Physician Assistant; Emergency Provider Emergency Medicine; PCP Student in an Organized Health Care Education/Training Program
DX: K40.90 Unilateral inguinal hernia, without obstruction or gangrene, not specified as recurrent (principal); N50.3 Cyst of epididymis; F17.220 Nicotine dependence, chewing tobacco, uncomplicated
CPT/HCPCS: 36415; 74177; 76870; 80053; 81001; 83690; 85025; 93976; 99284; Q9967

== ENCOUNTER 2025-06-24 12:59 | Outpatient (CLI) | payer BC, SELFPAY | END 2025-06-24 13:00 | disposition home or self-care (01) | LOC: ANHSURGERY 13:03 | PROVIDERS: PCP Student in an Organized Health Care Education/Training Program; Visit Provider Surgery | DX: K40.90 Unilateral inguinal hernia, without obstruction or gangrene, not specified as recurrent (principal) | CPT/HCPCS: 36415; 86850; 86900; 86901 ==

== ENCOUNTER 2025-06-29 03:54 | Day surgery (SDC) | payer BC, SELFPAY ==
[2025-06-23 13:00] VITALS: BMI 24.0
--- NOTE | 2025-06-23 13:12 | PC.NURSE ---
[facility] has started construction of its new state of the art ER which will open Spring 2026. With this, we anticipate parking may be a challenge for some our surgical patients and families. Parking spaces are limited but are available for all Surgical, obstetrics, and ER patients sharing this lot. If you arrive and find you are having a hard time finding a parking space, please note that we understand the challenges, please drive around the hospital and park near Hospital Entrance 1. When you enter this entrance, you can ask a volunteer to direct or take you back to the surgical waiting area to check in. We appreciate everyone?s understanding of these expected challenges while we build for your future. Report to the Outpatient Waiting Room, entrance under the green pavilion located off [address], at time _0600_ on date _[id number]_. Planned Procedure Time: _0730_.? Time changes happen often and if your time is changed the preop area will call you the afternoon before. - You and your visitor will be asked to self-screen and do not enter if you have any COVID symptoms. Please call surgeon if you need to reschedule. - A mask is optional within the hospital at this time. Patients may have clear liquids (water, carbonated beverages, clear teas, apple juice) until 3 hours prior to surgery with a maximum of 20 ounces. - No food from midnight until time of surgery and no smoking, or chewing tobacco (or any form of nicotine). No chewing gum, candy or mints. Take only the following medications with a SIP of water on the morning of surgery: __None___ DO NOT STOP ANY OF YOUR OTHER PRESCRIPTION MEDICATIONS PRIOR TO SURGERY EXCEPT THE FOLLOWING Hold all vitamins and supplements for 3 days per anesthesiologist. Medications to discontinue per physician Date to take last [id number]__[id number]___ Please no make-up, nail romanian, hairspray, perfume, deodorant, or body powder the day of surgery.? No jewelry (including any body piercings) or valuables the day of surgery, leave them at home.? Please take a shower or bath the night before, or the morning of, surgery with an antibacterial soap.? Wear comfortable, loose fitting clothing.? - Jewelry must be removed prior to entering the operating room.? Rings and piercings that are not removed may be cut off. - The hospital will not accept responsibility for valuables.? - Please leave all valuables, including medications, at home the day of surgery. If you are going home after surgery, a licensed trailer truck driver must drive you home.? - NO public transportation without another adult if you receive anesthesia. - We recommend that an adult stay with you for 24 hours following discharge. - We also recommend that you do not drive, make important decision, drink alcoholic beverages, or take any drugs that were not prescribed by your health care provider for at least 24 hours after your discharge time. Follow any additional instructions given to you from your surgeon. Telephone instructions given to __Tommy___and asked if any additional questions and then verbalized understanding. Patient advised to call surgeon office or pre surgery nurse liaison [phone] if any additional questions.
[2025-06-29] VITALS (15 sets, daily range): BP systolic 87–117; BP diastolic 52–66; PULSE 44–63; RESP 12–16; TEMP 36.3–37.1; O2SAT 99–100
--- OUTSIDE RECORDS SUMMARY | 2025-06-29 03:56 | XMS_ITS | Clinical Summary ---
Author Organization [facility] Address [address] [place] [address] Care Team Providers Care Pantograph Watcher Name Role Phone Jaime Borja DO Primary Care Provider + Allergies No known active allergies Medications Multiple Vitamins-Orlinda als (MULTIVITAMIN ADULT) Tab Active ketoconazole (NIZORAL) [...] Encounters Date Type Department Care Team Description 05/27/2025 Scan [facility] Scanned, [facility] 05/04/2025 Scan [facility] Scanned, Doc [facility] CT (SCAN); Ultrasound (SCAN); Lab (SCAN) 05/04/2025 Telephone [facility] Family & Internal Medicine [address] [phone] Jaime Borja DO Referral from Last 3 [...] Sex Assigned at Male 11/12/2024 8:52 AM DINING ROOM COORDINATOR Legal Sex Male 3:35 PM CDT Gender Identity Male 11/12/2024 8:52 AM DINING ROOM COORDINATOR Sexual Orientation Not on file 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 file Not on file Not on file Last Filed Vital Signs Vital Sign Reading Time Taken Comments Blood Pressure 124/84 11/12/2024 8:52 AM DINING ROOM COORDINATOR Pulse 79 11/12/2024 8:52 AM DINING ROOM COORDINATOR Temperature 36.8 C (98.3 F) 11/12/2024 8:52 AM DINING ROOM COORDINATOR Respiratory Rate 16 11/12/2024 8:52 AM DINING ROOM COORDINATOR Oxygen Saturation 98% 11/12/2024 8:52 AM DINING ROOM COORDINATOR Inhaled Oxygen Concentration - - Weight 82.6 kg (182 lb) 11/12/2024 8:52 AM DINING ROOM COORDINATOR Height 177.8 cm (5' 10) 11/12/2024 8:52 AM DINING ROOM COORDINATOR Body Mass Index 26.11 11/12/2024 8:52 AM DINING ROOM COORDINATOR Plan of Treatment Upcoming Encounters Date Type Department Care Team (Late st Contact Info) Description 11/16/2025 8:40 AM DINING ROOM COORDINATOR Office Visit [facility] Family & Internal Medicine [address] [phone] Jaime Borja, [address] [place] [phone] Health Maintenance Due Date Last Done Comments Pneumococcal Vaccine: 50+ Years (1 of 1 - PCV) 2011 COVID-19 Vaccine (1 - season) 2025 Influenza Adult (#1) 2025 Annual Physical 11/12/2025 11/12/2024, 09/17, 07/26/2022, Additional history exists DTaP, Tdap and Td Vaccines (1 - Tdap) 11/12/2025 Postponed from 1980 (Patient Refused) Zoster Vaccines (1 of 2) 11/12/2025 Pos tponed from 2011 (Patient Refused) Colorectal Cancer Screening Colonoscopy (10 Years) 10/10/2032 10/10/2022 RSV Immunization or 60+ Years (1 - 1-dose 75+ series) 2036 Hepatitis C Completed 07/26/2022 PHQ-2 (Physician [place]) Completed 11/12/2024 Meningococcal B Vaccine Aged Out No l onger eligible based on patient's age to complete this topic Meningococcal Vaccine Aged Out No job tyra eligible based on patient's age to complete this topic RSV Immunizations Under 20 Months Aged Out No longer eligible based on patient's age to complete this topic Procedures Procedure Name Priority Date/Time Associated Diagnosis Comments CT GENERIC 05/04/2025 OUTSIDE LAB (SCAN ORDER) 05/04/2025 OUTSIDE LAB (SCAN ORDER) 05/04/2025 ULTRASOUND GENERIC (SCAN ORDER) 05/04/2025 COLONOSCOPY GENERIC (SCAN ORDER) 10/10/2022 HEPATITIS C ANTIBODY Routine 07/26/2022 8:22 AM DINING ROOM COORDINATOR Encounter for preventative adult health care examination Need for hepatitis C screening test from Last 3 Months or Most Recently Relevant to Health Maintenance Results * CT GENERIC (05/04/2025) Anatomical Region Laterality Modality Other 05/04/2025 us [facility] Scanned SCANNING Final Resu lt * OUTSIDE LAB (SCAN ORDER) (05/04/2025) Only the most recent of2 resultswithin the time period is included. 05/04/2025 [facility] Scanned SCANNING Final Resu lt * ULTRASOUND GENERIC (SCAN ORDER) (05/04/2025) Anatomical Region Laterality Modality Other 05/04/2025 us [facility] Scanned SCANNING Final Resu lt * COLONOSCOPY GENERIC (10/10/2022) 10/10/2022 us [facility] Scanned SCANNING Final Resu lt * HEPATITIS C ANTIBODY (07/26/2022 8:22 AM DINING ROOM COORDINATOR) HEPATITIS C AB NON-REACTI VE NON-REACT JOESPH 07/26/2022 6:[address] [facility] Comment: ANTIBODIES TO HCV NOT DETECTED. DOES NOT EXCLUDE THE POSSIBILITY OF EXPOSURE TO HCV. 07/26/2022 8:22 AM DINING ROOM COORDINATOR Jaime Borja DO LABORATORY Final Re sult [facility] [address] [place] [address], [id number] from Last 3 Months or Most Recently Relevant to Health Maintenance Insurance [facility] Care Teams Pantograph Watcher Relationship Specialty Start Date End Date Jaime Borja DO [address] [place] [id number] PCP - General FAMILY PRACTICE 07/13/20
--- OUTSIDE RECORDS SUMMARY | 2025-06-29 03:56 | XMS_ITS | Clinical Summary ---
Author Organization [facility] Address [address] [place] [address] Care Team Providers Care Manager Human Capital Name Role Phone LukemineshJaime munoz Primary Care [...] patient's age to complete this topic Insurance Ener1 OOS Ener1 OOS Care Teams Manager Human Capital Relationship Specialty Start Date End Date Jaime Borja DO [address] [place] [id number] PCP - General Family Medicine 01/14/24
[2025-06-29] MEDS: ACETAMINOPHEN 500 MG TABLET 1000 MG PO (07:15)
[2025-06-29] MEDS: LACTATED RINGERS 1,000 ML 30 ML IV CONT ×3 (07:15→10:00)
[2025-06-29] MEDS: KETOROLAC 15 MG/ML VIAL (*BKC) IV PUSH (07:15)
--- NOTE | 2025-06-29 07:17 | PM.IMHP ---
H&P: HPI History of Present Illness Date/Time: 06/29/25 07:17 Chief Complaint: Right inguinal hernia Narrative: Mr. Woo presents to the office for evaluation. He was recently in [facility] ER on 05/04/2025 with c/o right groin pain that developed after blowing his nose. CT scan was done showing a right inguinal hernia containing fat with presence of fatty infiltration and stranding indicating secondary changes within the fat. Has been using a hernia belt which helps keep hernia reduced and helps with the associated tenderness. Bulge reduces with lying. No change in bowel habits. Review of Systems Review of Systems: All systems reviewed & are unremarkable except as noted in HPI and below PMFSH Surgical History Surgical History Hx of colonoscopy Surgical history unknown Family History Family History Father Malignant neoplasm of prostate Family history of throat cancer Grandparent Malignant neoplasm of prostate Mother Family history of malignant neoplasm of brain Social History Social History Smoking status: Never smoker Smokeless tobacco user: chewing tobacco Additional smoking assessment comments: Since age 17. Alcohol intake: current Substance use: former Substance use type: marijuana Other substance usage details: Over a year ago. Living arrangements: with family Occupation/Education: occupation Additional occupation/education comments: [employer] [facility] care concerns: No Meds Home Medications and Allergies Home Medications ?Medication ?Instructions ?Recorded ?Confirmed ?Type Gluco-Gel 4 tab-cap PO DAILY 09/28/22 06/23/25 History Liver Protect 1 tab-cap PO DAILY 09/28/22 06/23/25 History Multi-Vitamin 2 tab-cap PO DAILY 09/28/22 06/23/25 History Probiotic 2 tab-cap PO DAILY 09/28/22 06/23/25 History Vitamin C 7,000 mg PO DAILY 09/28/22 06/23/25 History acetylcysteine 600 mg capsule (NAC) 600 mg PO DAILY 09/28/22 06/23/25 History cholecalciferol (vitamin D3) 125 250 mcg PO DAILY 09/28/22 06/23/25 History mcg (5,000 unit) tablet (Vitamin D3) garlic 1,800 mg PO DAILY 09/28/22 06/23/25 History lecithin 1,200 mg capsule 1,200 mg PO DAILY 09/28/22 06/23/25 History magnesium 500 mg tablet 500 mg PO DAILY 09/28/22 06/23/25 History magnesium glycinate 175 mg PO HS 09/28/22 06/23/25 History omega-3 fatty acids 2,000 mg PO DAILY 09/28/22 06/23/25 History quercetin 500 mg capsule 500 mg PO DAILY 09/28/22 06/23/25 History selenium 200 mcg capsule 300 mcg PO DAILY 09/28/22 06/23/25 History zinc 50 mg capsule 50 mg PO DAILY 09/28/22 06/23/25 History Allergies Allergy/AdvReac Type Severity Reaction Status Date / Time No Known Allergies Allergy Mild Verified 06/23/25 12:56 Exam Const: General: cooperative, comfortable and no acute distress Resp: Auscultation: clear to auscultation bilaterally Cardio: Rate: regular rate Rhythm: regular rhythm GI: GI Palp: No abdominal tenderness, Yes Soft to palpation and Yes Hernia present Other: moderate size right inguinal hernia Assessment and Plan Assessment and plan (1) Inguinal hernia of right side without obstruction or gangrene: Code(s): K40.90 - Unilateral inguinal hernia, without obstruction or gangrene, not specified as recurrent Status: Acute Assessment and Plan: set up for robotic assisted repair with mesh
--- NOTE | 2025-06-29 07:18 | WPDHPUPDATE1 ---
History and Physical Update Update Date/Time: 06/29/25 07:18 History and Physical has been reviewed, including an updated exam of the patient. There are NO changes in the patient's condition. Risks, benefits, and alternatives have been discussed and questions answered. Patient agrees to proceed with procedure.
--- NOTE | 2025-06-29 07:20 | WPDANESEPPF ---
Anes - Initial Pre Proc Eval Procedure: Operation Date: 06/29/25 07:30 Proposed Procedures p Robotic Assisted Right Inguinal Hernia Repair with Mesh - Rose Chaney MD Date/Time: 06/29/25 07:20 Surgeon: Rose Chaney MD Pre Op Diagnosis: right inguinal hernia Patient Data Age: 64 Gender: M Height: 1.78 m Weight: 76 kg Allergies Allergy/AdvReac Type Severity Reaction Status Date / Time No Known Allergies Allergy Mild Verified 06/23/25 12:56 Home Medications ?Medication ?Instructions ?Recorded ?Confirmed ?Type Gluco-Gel 4 tab-cap PO DAILY 09/28/22 06/23/25 History Liver Protect 1 tab-cap PO DAILY 09/28/22 06/23/25 History Multi-Vitamin 2 tab-cap PO DAILY 09/28/22 06/23/25 History Probiotic 2 tab-cap PO DAILY 09/28/22 06/23/25 History Vitamin C 7,000 mg PO DAILY 09/28/22 06/23/25 History acetylcysteine 600 mg capsule (NAC) 600 mg PO DAILY 09/28/22 06/23/25 History cholecalciferol (vitamin D3) 125 250 mcg PO DAILY 09/28/22 06/23/25 History mcg (5,000 unit) tablet (Vitamin D3) garlic 1,800 mg PO DAILY 09/28/22 06/23/25 History lecithin 1,200 mg capsule 1,200 mg PO DAILY 09/28/22 06/23/25 History magnesium 500 mg tablet 500 mg PO DAILY 09/28/22 06/23/25 History magnesium glycinate 175 mg PO HS 09/28/22 06/23/25 History omega-3 fatty acids 2,000 mg PO DAILY 09/28/22 06/23/25 History quercetin 500 mg capsule 500 mg PO DAILY 09/28/22 06/23/25 History selenium 200 mcg capsule 300 mcg PO DAILY 09/28/22 06/23/25 History zinc 50 mg capsule 50 mg PO DAILY 09/28/22 06/23/25 History Patient hx anesthesia problems: none Family hx anesthesia problems: none Results Review: All pre-operative results and documents have been reviewed as part of the pre-operative evaluation. PMFSH Surgical History Surgical History Hx of colonoscopy Surgical history unknown Family History Family History Father Malignant neoplasm of prostate Family history of throat cancer Grandparent Malignant neoplasm of prostate Mother Family history of malignant neoplasm of brain Social History Social History Smoking status: Never smoker Smokeless tobacco user: chewing tobacco Additional smoking assessment comments: Since age 17. Alcohol intake: current Substance use: former Substance use type: marijuana Other substance usage details: Over a year ago. Living arrangements: with family Occupation/Education: occupation Additional occupation/education comments: [employer] care concerns: No Anes - Eval Final PreProcedure Day of Procedure 06/29/25 07:20 Patient weight: normal Heart: regular rate and rhythm Lungs: clear to auscultation Airway: Mallampati scale class II Neurological: alert and oriented Last oral intake: >/= 8 hours ASA classification: II Emergent: yes Anesthetic plan: proceed Anesthesia type and monitoring: general GIVS and standard monitoring Results Review: All pre-operative results and documents have been reviewed as part of the pre-operative evaluation. Informed Consent: The patient's anesthetic plan and its attendant risks and benefits were discussed with the patient/family/POA. Questions were solicited and answers provided to the satisfaction of the patient/family/POA.
[2025-06-29] MEDS: ceFAZolin 2 GM in SODIUM CHLORIDE 0.9% IV 50 ML 100 ML IVPB (07:28)
[2025-06-29] MEDS: BUPIVACAINE/EPINEPHRINE 0.5% 50 ML VIAL 30 ML INFILTRATE (08:22)
--- NOTE | 2025-06-29 08:54 | W.PM.PROC2 ---
Procedure Note - Detailed Date of Procedure 06/29/25 Pre-op Diagnosis right inguinal hernia Post-op Diagnosis Same Procedure Performed robotic assisted right inguinal hernia repair with mesh Surgeon Rose Chaney MD Anesthesia General Indications 64-year-old male presenting to the office with a moderate sized, reducible right inguinal hernia Findings moderate-sized right inguinal hernia Description of Procedure Patient was brought into the operating room and placed in the supine position. After adequate induction of general anesthesia, the patient was prepped and draped in normal sterile fashion. A time-out was then done to verify the patient's identity, as well as the procedure being performed. Began by making a 8 mm incision in the supraumbilical region, a Veress needle was then placed into the peritoneal cavity. CO2 gas was then insufflated and after adequate pneumoperitoneum was achieved, the Veress needle was removed. I then placed an 8 mm trocar through this incision. I then placed the endoscope through this trocar site and under direct visualization placed 2 further 8 mm ports in the right and left mid abdomen. The [employer] robot was then docked to the 3 trocar sites. I then scrubbed out and went to the robotic console. Upon examining the pelvis, it was noted that the patient had a moderate-sized right inguinal hernia. The left side was examined and no hernia defect was noted. I began by making a preperitoneal flap approximately 6 cm superior to the defect. This flap was carried medially past the umbilical ligaments in laterally to the transversalis. It then began dissection of my medial compartment taking this down to the pubic tubercle. I then began the lateral dissection taking this down to the transversalis fascia. Once these compartments were achieved, I began dissection around the cord structures. A moderate-sized indirect hernia was noted at this point. Using careful dissection, was able to reduce indirect hernia sac off the cord structures. Once this was adequately done, I went ahead and placed a large piece of 3D Max mesh into the abdominal cavity. The mesh was carefully positioned, centering the center of the mesh over the indirect defect. Once this was done, was very satisfied with our repair. Using 3-0 Vicryl sutures, I tacked the mesh medially to Sonido's ligament. Two lateral sutures were placed from the mesh to the transversalis fascia. I then closed the peritoneal flap with a running 2.0 V Lock suture. The abdomen was then desufflated, and all ports were removed. All incisions were then closed with the 4.0 monocryl suture. Dermabond was placed on each wound. The patient tolerated the procedure well, was extubated in the operating room postoperatively, and will now be transferred to the recovery room in stable condition. Implants large 3DMax mesh Estimated Blood Loss 10 Drains No Packing No Pathology None sent Complications No immediate complications Condition Stable Disposition PACU [facility] Billing Surgery - Charge Forward: Surgery Billing
[2025-06-29] MEDS: fentaNYL CITRATE INJ (*CRX) 100 MCG/2 ML VIAL 25 MCG IV PUSH ×2 (09:24→09:30)
== END 2025-06-29 13:35 | disposition home or self-care (01) ==
PROVIDERS: PCP Student in an Organized Health Care Education/Training Program; Visit Provider Surgery
PROC: 8E0Y4CZ Robotic Assisted Procedure of Lower Extremity, Percutaneous Endoscopic Approach (ICD-10-PCS; CPT 49650; principal; 2025-06-29 07:30)
DX: K40.90 Unilateral inguinal hernia, without obstruction or gangrene, not specified as recurrent (principal); F17.220 Nicotine dependence, chewing tobacco, uncomplicated; F12.90 Cannabis use, unspecified, uncomplicated; Z80.42 Family history of malignant neoplasm of prostate; Z80.1 Family history of malignant neoplasm of trachea, bronchus and lung; Z80.8 Family history of malignant neoplasm of other organs or systems
CPT/HCPCS: 49650; S2900; J0690; A9270; C1781; J1100; J1885; J2250; J2270; J2405; J2704; J3010; J7120